=== PATIENT | male | born 1960 | race Caucasian/White ===

== ENCOUNTER 2020-01-04 09:20 | Emergency (ER) | payer MEDICAID ==
[~2020-01-04] VITALS: Ht 182.9 cm; Wt 86.0 kg
[~2020-01-04 09:20] MED LIST: HYDR-3246 PO
[2020-01-04 10:11] VITALS: BP 124/54
== END 2020-01-04 11:37 | disposition other institution (70) ==
LOC: ED 10:30
DX: J06.9 Acute upper respiratory infection, unspecified (principal); Z20.828 Contact with and (suspected) exposure to other viral communicable diseases; B34.9 Viral infection, unspecified
CPT/HCPCS: 87635; 99283